=== PATIENT | female | born 1945 | race African-American/Black ===

== ENCOUNTER 2020-02-12 17:01 | Emergency (ER) | payer MEDICARE, BC ==
[~2020-02-12] VITALS: Ht 162.6 cm; Wt 71.0 kg
[2020-02-12] MEDS ORDERED: ACETAMINOPHEN WITH CODEINE 300/30MG TABLET PO ONE (18:00)
[2020-02-12 20:17] VITALS: BP 131/69
== END 2020-02-12 20:21 | disposition home or self-care (01) ==
LOC: ER 17:01
DX: R22.42 Localized swelling, mass and lump, left lower limb (principal); M79.662 Pain in left lower leg; I10 Essential (primary) hypertension; E78.00 Pure hypercholesterolemia, unspecified; M48.00 Spinal stenosis, site unspecified; Z90.710 Acquired absence of both cervix and uterus
CPT/HCPCS: 73590; 93971; 99284

== ENCOUNTER 2023-05-27 14:29 | Emergency (ER) | payer BC ==
[~2023-05-27] VITALS: Ht 165.1 cm; Wt 66.7 kg
[2023-05-27 15:06] VITALS: O2SAT 98
[2023-05-27] MEDS ORDERED: KETOROLAC 15MG/ML VIAL IM ONE (21:45)
[2023-05-27] MEDS ORDERED: LIDO700A15 TP (23:16)
[2023-05-27] MEDS ORDERED: NAPR-1176 MT (23:16)
[2023-05-27 23:25] VITALS: BP 163/70; PULSE 63; RESP 18; TEMP 98.5
== END 2023-05-27 23:30 | disposition home or self-care (01) ==
LOC: ER 14:43
DX: M25.552 Pain in left hip (principal); I10 Essential (primary) hypertension; E78.00 Pure hypercholesterolemia, unspecified
CPT/HCPCS: 99283; 73502; 96372; J1885